=== PATIENT | female | born 1980 | race Caucasian/White ===

== ENCOUNTER 2016-07-14 17:01 | Emergency (ER) | payer BC ==
[~2016-07-14] VITALS: Ht 180.3 cm; Wt 139.8 kg
[~2016-07-14 17:01] MED LIST: ALDOMET250 MG PO; ENDOCET 5-3251 EACH PO; IBUPROFEN800 MG PO; MACROBID100 MG PO; Motrin PO; NIFEDIPINE ER30 MG PO; PRENATAL TABLE1 EAC3 PO; PYRIDIUM100 MG PO; Percocet 5/325,Endoc PO; TYLENOL REGULA325 MG PO; ZANTAC150 MG PO; ZOFRAN ODT4 MG PO; ZYRTEC10 M3 PO
[2016-07-14] MEDS ORDERED: HYDROCHLOROTHIA25 MG PO (17:19)
[2016-07-14] MEDS ORDERED: CYMBALTA30 MG PO (17:19)
[2016-07-14 20:38] VITALS: BP 173/109
== END 2016-07-14 20:39 | disposition home or self-care (01) ==
LOC: EME 17:01
DX: R20.2 Paresthesia of skin (principal); I10 Essential (primary) hypertension; Z98.890 Other specified postprocedural states
CPT/HCPCS: 70450; 99281; 99284